=== PATIENT | male | born 1990 | race Caucasian/White ===

== ENCOUNTER → 2016-10-15 | Outpatient (CLI) | payer OTHER ==
[~2016-10-15] MED LIST: FAMO20TA5 PO; PRED20TA PO
--- OUTSIDE RECORDS SUMMARY | 2016-10-15 13:20 | XMS REPORT | Continuity of Care Document ---
Author Author [facility] Organization [facility] Address Unknown Phone Unavailable Care Team Providers Care Health Type Technician Name Role Phone BRONSON MARTIN DO PCP Insurance Providers Payer Name Policy Number Subscriber Name Relationship [facility] [id number] [employer] 19 Self / Same As Patient Advance Directives Directive Response Recorded Date/Time Advance Directives No 11/23/14 10:48am Resuscitation Status Full Code 11/23/14 10:48am Problems Medical Problems Problem Onset Date Status Urticaria Unknown Active Medications Medication Dose Route Sig Days/Qty Instructions Order Date Discontinued Date Status Prednisone 40 Mg PO DAILY 10 Qty 11/23/14 Active Famotidine (Pepcid) 1 Each PO TWICE A DAY 30 Qty 11/23/14 Active Social History Social History Problem Response Recorded Date/Time Alcohol Use Occasionally Uses 11/23/2014 10:48am Recreational Drug Use No 11/23/2014 10:48am Recent Foreign Travel No 11/23/2014 10:46am Recent Infectious Disease Exposure No 11/23/2014 10:46am Smoking Status Former Smoker 11/23/2014 10:48am Query Response Start Date Stop Date Smoking Status Former Smoker Hospital Discharge Instructions No hospital discharge instructions. Plan of Care No plan of care. Functional Status No functional status results. Allergies, Adverse Reactions, Alerts Allergen Type Severity Reaction Status Last Updated No Known Allergies Allergy Mild Active 01/14/09 Immunizations No immunization records. Vital Signs Acute Vital Signs Vital Response Date/Time Temperature (Fahrenheit) 97.8 degrees F (97.6 - 99.5) Temperature (Calculated Celsius) 36.74744 degrees C (36.4 - 37.5) Pulse Rate (adult) 73 bpm (60 - 90) Respiratory Rate 18 bpm (12 - 24) O2 Sat by Pulse Oximetry 97 % (88 - 100) Blood Pressure 150/66 mm Hg Pain Pain Intensity 0 Height (Feet) 5 feet Height (Inches) 11 inches Height (Calculated Centimeters) 180.336071 cm Weight (Pounds) 200 pounds Weight (Calculated Kilograms) 90.777870 kilograms Calculated BMI 27.89 Results No known relevant diagnostic tests, laboratory data and/or discharge summary. Procedures No known history of procedures. Encounters Encounter Location Date/Time Departed Emergency Room Via [facility] 11/23/14 10:41am Recent Diagnosis
--- NOTE | 2016-10-15 14:35 | Diagnostic Imaging Report ---
INDICATION: Palpable fullness superior to the right testicle. FINDINGS: Corresponding to the area of palpable fullness is a 1.1 cm anechoic benign simple right epididymal head cyst. Epididymides appear otherwise normal. There is no evidence for testicular mass. There is no torsion or orchitis. No findings of epididymitis. No hernia. IMPRESSION: A 1 cm benign right epididymal head cyst corresponds to the palpable fullness. No evidence for neoplasm, acute or suspicious finding. Dictated by: Dictated on workstation # [id number]
== END ==
LOC: RAD 13:17
PROVIDERS: ATTEND Nurse Practitioner
DX: N50.3 Cyst of epididymis (principal)
CPT/HCPCS: 76870

== ENCOUNTER 2021-07-03 09:46 | Emergency (ER) | payer BC ==
[~2021-07-03] VITALS: Ht 177.8 cm; Wt 100.0 kg
[~2021-07-03 09:46] MED LIST changes: +CEPH500T PO; +HYDR-4226 PO
[2021-07-03 10:37] LABS: BASOPHILS # (AUTO) 0.1 10^3/uL (0.0-0.1); BASOPHILS % (AUTO) 1 % (0-10); EOSINOPHILS # (AUTO) 0.1 10^3/uL (0.0-0.3); EOSINOPHILS % (AUTO) 2 % (0-10); HEMATOCRIT 46 % (40-54); HEMOGLOBIN 15.2 g/dL (13.3-17.7); LYMPHOCYTES # (AUTO) 1.4 10^3/uL (1.0-4.0); LYMPHOCYTES % (AUTO) 20 % (12-44); MEAN CORPUSCULAR HEMOGLOBIN 29 pg (25-34); MEAN CORPUSCULAR HGB CONC 33 g/dL (32-36); MEAN CORPUSCULAR VOLUME 87 fL (80-99); MONOCYTES # (AUTO) 0.5 10^3/uL (0.0-1.0); MONOCYTES % (AUTO) 8 % (0-12); NEUTROPHILS # (AUTO) 5.1 10^3/uL (1.8-7.8); NEUTROPHILS % (AUTO) 70 % (42-75); PLATELET COUNT 259 10^3/uL (130-400); WHITE BLOOD COUNT 7.2 10^3/uL (4.3-11.0)
[2021-07-03 10:51] LABS: ALBUMIN 4.5 GM/DL (3.2-4.5); CHLORIDE 105 MMOL/L (98-107); POTASSIUM 4.3 MMOL/L (3.6-5.0); SODIUM 141 MMOL/L (135-145)
[2021-07-03 10:53] LABS: CALCIUM 9.4 MG/DL (8.5-10.1)
[2021-07-03 10:54] LABS: GLUCOSE 99 MG/DL (70-105); TOTAL PROTEIN 7.1 GM/DL (6.4-8.2)
[2021-07-03 10:55] LABS: CARBON DIOXIDE 27 MMOL/L (21-32)
[2021-07-03 10:56] LABS: BILIRUBIN,TOTAL 0.4 MG/DL (0.1-1.0)
--- NOTE | 2021-07-03 10:56 | Diagnostic Imaging Report ---
INDICATION: Urosepsis. Atrial fibrillation. History of COVID. TECHNIQUE: Routine non contrast-enhanced axial images were obtained from the skull base to the vertex. Auto Exposure Controls were utilized during the CT exam to meet ALARA standards for radiation dose reduction COMPARISON: None. FINDINGS: The ventricles and cortical sulci are normal in size and contour. There is no midline shift or mass-effect. No acute intra-axial hemorrhage is seen. There are no abnormal areas of increased or decreased density to suggest acute hemorrhage or edema. No extra-axial masses or collections are present. The bony calvarium is intact. The visualized paranasal sinuses are unremarkable. The mastoid air cells are clear. IMPRESSION: 1. No acute intracranial abnormality. No CT evidence of mass, acute infarct or intracranial hemorrhage. Results were called to Dr. Bingham by Dr. Chapin at 1054 hours on 07/03/2021. Dictated by: Dictated on workstation # [id number]
[2021-07-03 10:57] LABS: ALKALINE PHOSPHATASE 62 U/L (40-136)
[2021-07-03 10:58] LABS: CREATININE SERUM 0.99 MG/DL (0.60-1.30); GFR ESTIMATED 89
[2021-07-03 10:59] LABS: BUN/CREATININE RATIO 14
[2021-07-03] MEDS ORDERED: LACTATED RINGERS 1,000 ML IV ONE (11:00)
--- NOTE | 2021-07-03 11:00 | Diagnostic Imaging Report ---
INDICATION: Chest pain and arm numbness. TECHNIQUE: Frontal chest obtained at 10:50 a.m. and compared to 03/15/2012. FINDINGS: Heart and mediastinal silhouette are normal in appearance. The lungs are clear. There is no pneumothorax or pleural fluid. IMPRESSION: Negative chest. Dictated by: Dictated on workstation # [id number]
[2021-07-03 11:01] LABS: ALANINE AMINOTRANSFERASE 20 U/L (0-55); ERYTHROCYTE SEDIMENTATION RATE 2 MM/HR (0-15); MAGNESIUM 1.9 MG/DL (1.6-2.4)
[2021-07-03 11:02] LABS: CREATINE KINASE 152 U/L (30-200); LIPASE 9 U/L (8-78)
[2021-07-03 11:09] LABS: CREATINE KINASE MB 1.4 NG/ML (<6.6)
[2021-07-03 11:22] LABS: TSH (THYROID ANALYZER) 1.69 UIU/ML (0.35-4.94)
--- NOTE | 2021-07-03 11:35 | ED General ---
General Chief Complaint: Chest Pain Stated Complaint: ARM NUMBNESS,SHAKES,FOGGY Nursing Triage Note: Pt ambulatory into ER with complaint of Dizziness/Foggy Head x2 days, Chest Tightness arm numbness today. Pt states that its worsened over the last two days, and today the chest tightness and numbness started and with their family history of Cardiac events, patients mother encouraged him to come to the ER. Pain at a 2/10. Allergies and Home Medications Allergies Coded Allergies: No Known Allergies (Unverified Allergy, Mild, 01/14/09) Patient Home Medication List Cephalexin (Cephalexin) 500 Mg Tablet, 500 MG PO BID Prescribed by: ARACELI HAMEED on 06/13/20 1556 Famotidine (Pepcid) 20 Mg Tablet, 1 EACH PO BID Prescribed by: ANN MANZO on 11/23/14 1116 Hydrocodone/Acetaminophen (Hydrocodone/Acetaminophen 5 MG/325 MG TAB) 1 Each Tablet, 1 TAB PO Q6H Prescribed by: ARACELI HAMEED on 06/13/20 1607 Prednisone (Prednisone) 20 Mg Tablet, 40 MG PO DAILY Prescribed by: ANN MANZO on 11/23/14 1116 Past Rbzqpvs-Kpxfen-Xkvkhi Hx Patient Social History Tobacco Use?: No Use of E-Cig and/or Vaping dev: Yes E-Cig or Vaping type used: Nicotine Substance use?: No Alcohol Use?: Yes Alcohol type: Beer, Hard Liquor Alcohol Frequency: Couple times a week Pt feels they are or have been: No Immunizations Up To Date Influenza Vaccine Up-to-Date: No; Not Current Seasonal Allergies Seasonal Allergies: No Past Medical History Surgeries: No Respiratory: No Cardiac: No Neurological: No Reproductive Disorders: No Genitourinary: No Gastrointestinal: No Musculoskeletal: No Endocrine: No HEENT: No Cancer: No Psychosocial: No Family Medical History No Pertinent Family Hx Physical Exam Vital Signs Vital Signs - First Documented 07/03/21 10:16 Temp 36.3 Pulse 67 Resp 16 B/P (MAP) 130/78 (95) Pulse Ox 98 O2 Delivery Room Air Capillary Refill : Less Than 3 Seconds Height, Weight, BMI Height: 5'11" Weight: 200lbs. oz. 90.159891rh; 31.00 BMI Method:Stated Progress/Results/Core Measures Suspected Sepsis SIRS Temperature: Pulse: 67 Respiratory Rate: 16 Laboratory Tests 07/03/21 10:30: White Blood Count 7.2 Blood Pressure 130 /78 Mean: 95 Laboratory Tests 07/03/21 10:30: Creatinine 0.99, Platelet Count 259, Total Bilirubin 0.4 Results/Orders Lab Results Laboratory Tests Test 07/03/21 10:30 Range/Units White Blood Count 7.2 4.3-11.0 10^3/uL Red Blood Count 5.23 4.30-5.52 10^6/uL Hemoglobin 15.2 13.3-17.7 g/dL Hematocrit 46 40-54 % Mean Corpuscular Volume 87 80-99 fL Mean Corpuscular Hemoglobin 29 25-34 pg Mean Corpuscular Hemoglobin Concent 33 32-36 g/dL Red Cell Distribution Width 12.4 10.0-14.5 % Platelet Count 259 130-400 10^3/uL Mean Platelet Volume 9.0 9.0-12.2 fL Immature Granulocyte % (Auto) 0 % Neutrophils (%) (Auto) 70 42-75 % Lymphocytes (%) (Auto) 20 12-44 % Monocytes (%) (Auto) 8 0-12 % Eosinophils (%) (Auto) 2 0-10 % Basophils (%) (Auto) 1 0-10 % Neutrophils # (Auto) 5.1 1.8-7.8 10^3/uL Lymphocytes # (Auto) 1.4 1.0-4.0 10^3/uL Monocytes # (Auto) 0.5 0.0-1.0 10^3/uL Eosinophils # (Auto) 0.1 0.0-0.3 10^3/uL Basophils # (Auto) 0.1 0.0-0.1 10^3/uL Immature Granulocyte # (Auto) 0.0 0.0-0.1 10^3/uL Erythrocyte Sedimentation Rate 2 0-15 MM/HR Sodium Level 141 135-145 MMOL/L Potassium Level 4.3 3.6-5.0 MMOL/L Chloride Level 105 98-107 MMOL/L Carbon Dioxide Level 27 21-32 MMOL/L Anion Gap 9 5-14 MMOL/L Blood Urea Nitrogen 14 7-18 MG/DL Creatinine 0.99 0.60-1.30 MG/DL Estimat Glomerular Filtration Rate 89 BUN/Creatinine Ratio 14 Glucose Level 99 70-105 MG/DL Calcium Level 9.4 8.5-10.1 MG/DL Corrected Calcium 9.0 8.5-10.1 MG/DL Magnesium Level 1.9 1.6-2.4 MG/DL Total Bilirubin 0.4 0.1-1.0 MG/DL Aspartate Amino Transf (AST/SGOT) 19 5-34 U/L Alanine Aminotransferase (ALT/SGPT) 20 0-55 U/L Alkaline Phosphatase 62 40-136 U/L Total Creatine Kinase 152 30-200 U/L Creatine Kinase MB 1.4 <6.6 NG/ML Myoglobin 42.8 10.0-92.0 NG/ML Troponin I < 0.028 <0.028 NG/ML C-Reactive Protein High Sensitivity 0.02 0.00-0.50 MG/DL B-Type Natriuretic Peptide < 10.0 <100.0 PG/ML Total Protein 7.1 6.4-8.2 GM/DL Albumin 4.5 3.2-4.5 GM/DL Lipase 9 8-78 U/L TSH [place] Testing 1.69 0.35-4.94 UIU/ML Serum Alcohol < 10 <10 MG/DL My Orders Orders - SOLITARIO QUACH DO Ed Iv/Invasive Line Start (07/03/21 10:17) Ekg Tracing (07/03/21 10:17) Monitor-Rhythm Ecg Trace Only (07/03/21 10:17) Alcohol (07/03/21 10:17) BNP (07/03/21 10:17) Cbc With Automated Diff (07/03/21 10:17) Comprehensive Metabolic Panel (07/03/21 10:17) Drug Screen Stat (Urine) (07/03/21 10:17) Magnesium (07/03/21 10:17) Thyroid Analyzer (07/03/21 10:17) Ua Culture If Indicated (07/03/21 10:17) Troponin I (07/03/21 10:17) Ct Head Wo-R/O Stroke (07/03/21 10:24) Chest 1 View, Ap/Pa Only (07/03/21 10:24) Creatine Kinase (07/03/21 10:26) Creatine Kinase Mb (07/03/21 10:26) Hs C Reactive Protein (07/03/21 10:26) Erythrocyte Sedimentation Rate (07/03/21 10:26) Lipase (07/03/21 10:26) Myoglobin Serum (07/03/21 10:26) Ed Iv/Invasive Line Start (07/03/21 10:56) Lactated Ringers (Lr 1000 Ml Iv Solution (07/03/21 11:00) Medications Given in ED Current Medications Medications Dose Ordered Sig/Germaine Route Start Time Stop Time Status Last Admin Dose Admin Lactated Ringer's 1,000 ml @ 0 mls/hr Q0M ONCE IV 07/03/21 11:00 07/03/21 11:01 DC 07/03/21 11:08 1,000 MLS/HR Vital Signs/I&O 07/03/21 10:16 Temp 36.3 Pulse 67 Resp 16 B/P (MAP) 130/78 (95) Pulse Ox 98 O2 Delivery Room Air Capillary Refill : Less Than 3 Seconds Blood Pressure Mean: 95 Departure Impression Primary Impression: Anxiety Additional Impressions: Chest heaviness Dizziness Headache Disposition: HOME, SELF-CARE Condition: Improved Departure-Patient Inst. Decision time for Depature: 11:30 Referrals: LINDA ALAS DO (PCP/Family) Primary Care Physician Patient Instructions: Anxiety, Adult (DC), Headache, Adult (DC), Dizziness, Nonvertigo, (DC), Chest Pain That Is Not Caused by the Heart (DC) Add. Discharge Instructions: HOME, REST LOTS OF FLUIDS TYLENOL AND MOTRIN NEEDED FOR PAIN FOLLOW UP WITH DR. ALAS IN A FEW DAYS FOR FURTHER CARE, RETURN TO ER IF WORSE All discharge instructions reviewed with patient and/or family. Voiced understanding. SOLITARIO QUACH DO Jul 03, 2021 11:35
[2021-07-03 12:13] VITALS: BP 117/71
[2021-07-03 12:16] LABS: BILIRUBIN,URINE NEGATIVE (NEGATIVE); CLARITY,URINE CLEAR; COLOR,URINE YELLOW; GLUCOSE, URINE (UA) NEGATIVE (NEGATIVE); KETONES,URINE NEGATIVE (NEGATIVE); LEUKOCYTE ESTERASE ,URINE NEGATIVE (NEGATIVE); NITRITE,URINE NEGATIVE (NEGATIVE); PROTEIN,URINE NEGATIVE (NEGATIVE)
[2021-07-03 12:23] LABS: BACTERIA,URINE NEGATIVE /HPF; SQUAMOUS EPITHELIAL CELL,UR RARE /HPF
[2021-07-03 12:35] LABS: AMPHETAMINE SCREEN, URINE NEGATIVE (NEGATIVE); BARBITURATE SCREEN URINE NEGATIVE (NEGATIVE); BENZODIAZEPINES SCREEN URINE NEGATIVE (NEGATIVE); CANNABINOID SCREEN, URINE NEGATIVE (NEGATIVE); COCAINE SCREEN URINE NEGATIVE (NEGATIVE); METHADONE STAT NEGATIVE (NEGATIVE); METHAMPHETAMINE SCREEN URINE S NEGATIVE (NEGATIVE); OPIATE SCREEN URINE NEGATIVE (NEGATIVE); OXYCODONE STAT NEGATIVE (NEGATIVE); PROPOXYPHENE STAT NEGATIVE (NEGATIVE); TRICYCLIC ANTIDEPRESSANTS SCRE NEGATIVE (NEGATIVE)
== END 2021-07-03 12:03 | disposition home or self-care (01) ==
LOC: EDUNIT# 09:46 → ER 09:47
DX: F41.9 Anxiety disorder, unspecified (principal); R07.89 Other chest pain; R42 Dizziness and giddiness; R51.9 Headache, unspecified; Z79.52 Long term (current) use of systemic steroids
CPT/HCPCS: 70450; 71045; 80053; 80306; 81000; 82550; 82553; 83690; 83735; 83874; 83880; 84443; 84484; 85025; 85652; 86141; 93005; 93041; 99284; G0480; 36415; 80320

== ENCOUNTER → 2023-06-21 | Outpatient (CLI) | payer BC ==
--- NOTE | 2023-06-21 19:46 | Diagnostic Imaging Report ---
PROCEDURE: US Scrotum. TECHNIQUE: Multiple real-time grayscale images were obtained over the scrotum in various projections bilaterally. INDICATION: Left testicular pain. FINDINGS: The right testicle measures 4.2 x 1.9 x 2.9 cm. The left testicle measures 4.4 x 2.0 x 3.0 cm. Both testicles demonstrate Doppler flow without findings of torsion. There are no findings of an intratesticular mass. Doppler flow to the right testicle and epididymis are unremarkable. There appears to be a component of a varicocele on the right as there is a vascular structure near the epididymal head. On the left, there is a marked degree of increased vascularity demonstrated throughout the left testicle and throughout the left epididymis which is enlarged and hypervascular as well. The findings are compatible with a left-sided epididymal orchitis. There is no significant hydrocele. IMPRESSION: 1. Marked increased vascularity of the left testicle and epididymis compatible with a left sided epididymal orchitis. 2. No testicular mass or torsion. 3. Possible small right varicocele. Dictated by: Dictated on workstation # [id number]
== END ==
LOC: RAD 18:23
PROVIDERS: ATTEND Nurse Practitioner Family
DX: N50.812 Left testicular pain (principal); N50.89 Other specified disorders of the male genital organs; F41.9 Anxiety disorder, unspecified
CPT/HCPCS: 76870